=== PATIENT | male | born 1970 | race Caucasian/White ===

== ENCOUNTER 2018-08-02 19:17 | Emergency (ER) | payer BC ==
[~2018-08-02] VITALS: Ht 182.9 cm; Wt 90.9 kg
[2018-08-02] MEDS ORDERED: LIDOCAINE W/EPINEPHRINE 1% 20ML VIAL SC ONE (22:15)
[2018-08-02] MEDS ORDERED: BACT800T5 PO (22:42)
[2018-08-02] MEDS ORDERED: BACTRIM 160MG/800MG DS TAB PO ONE (22:45)
[2018-08-02 22:54] VITALS: BP 131/87
== END 2018-08-02 22:55 | disposition home or self-care (01) ==
LOC: M ED 19:17
DX: L02.212 Cutaneous abscess of back [any part, except buttock and flank] (principal); F17.200 Nicotine dependence, unspecified, uncomplicated; Z88.0 Allergy status to penicillin

== ENCOUNTER 2018-08-06 10:17 | Emergency (ER) | payer BC ==
[~2018-08-06] VITALS: Ht 182.9 cm; Wt 90.9 kg
[~2018-08-06 10:17] MED LIST: BACT800T5 PO
[2018-08-06 11:17] VITALS: BP 149/92
== END 2018-08-06 11:26 | disposition home or self-care (01) ==
LOC: M ED 10:17
DX: L02.212 Cutaneous abscess of back [any part, except buttock and flank] (principal); Z88.0 Allergy status to penicillin

== ENCOUNTER 2018-08-10 09:37 | Emergency (ER) | payer BC ==
[~2018-08-10] VITALS: Ht 182.9 cm; Wt 90.9 kg
[2018-08-10 10:33] VITALS: BP 131/87
== END 2018-08-10 11:02 | disposition home or self-care (01) ==
LOC: M ED 09:37
DX: L02.212 Cutaneous abscess of back [any part, except buttock and flank] (principal)

== ENCOUNTER 2018-08-14 10:57 | Emergency (ER) | payer BC ==
[~2018-08-14] VITALS: Ht 182.9 cm; Wt 90.9 kg
[2018-08-14 10:57] VITALS: BP 155/96
== END 2018-08-14 11:47 | disposition home or self-care (01) ==
LOC: M ED 10:57
DX: Z48.01 Encounter for change or removal of surgical wound dressing (principal); F17.210 Nicotine dependence, cigarettes, uncomplicated; Z88.0 Allergy status to penicillin